=== PATIENT | female | born 1975 | race Two or more races ===

== ENCOUNTER 2023-04-14 15:12 | Emergency (ER) | payer MEDICAID, OTHER ==
[~2023-04-14] VITALS: Ht 162.6 cm; Wt 81.0 kg
[2023-04-14 15:45] VITALS: BP 116/65; PULSE 78; RESP 16; O2SAT 98
== END 2023-04-14 17:50 | disposition left against medical advice (07) ==
LOC: ER 15:12 → EDBD 15:12 → ER 17:50
DX: R51.9 Headache, unspecified (principal); R20.2 Paresthesia of skin; Z53.21 Procedure and treatment not carried out due to patient leaving prior to being seen by health care provider; V49.9XXA Car occupant (driver) (passenger) injured in unspecified traffic accident, initial encounter; Y93.89 Activity, other specified; Y92.410 Unspecified street and highway as the place of occurrence of the external cause; Y99.8 Other external cause status